=== PATIENT | female | born 1960 | race Caucasian/White ===

== ENCOUNTER 2020-04-25 10:26 | Outpatient (REF) | payer OTHER, SELFPAY ==
[2020-04-25 11:41] LABS: Hematocrit 36.1 % (37-47); Hemoglobin 11.9 g/dl (12.0-16.0); Mean Corpuscular Hemoglobin 30.4 pg (27.0-33.0); Mean Corpuscular Volume 92.1 fL (80-98); Mean Platelet Volume 11.7 fL (9.4-12.3); Platelet Count 220 X10*3/uL (160-400); Red Blood Count 3.92 X10*6/uL (4.20-5.50); White Blood Count 4.2 X10*3/uL (4.8-10.8)
[2020-04-25 12:02] LABS: Alanine Aminotransferase 15 U/L (0-31); Albumin Level 4.1 g/dL (3.5-5.0); Alkaline Phosphatase 61 U/L (39-117); Anion Gap 10 (12-20); Aspartate Amino Transferase 17 U/L (5-31); Bilirubin Total 0.4 mg/dL (0.0-1.0); Blood Urea Nitrogen 10 mg/dL (9-16); Calcium 8.7 mg/dL (8.4-10.2); Carbon Dioxide 30 mmol/L (22-29); Chloride 99 mmol/L (96-108); Cholesterol 201 mg/dL; Estimated Glomerular Filt Rate > 60; Glucose Fasting 90 mg/dL (60-99); HDL Cholesterol 68 mg/dL; LDL Cholesterol Calculated 124 mg/dl; Potassium 4.3 mmol/l (3.3-5.1); Sodium 135 mmol/L (135-145); Total Protein 6.5 g/dL (6.5-8.0); Triglycerides 46 mg/dL
== END 2020-04-25 10:27 | disposition home or self-care (01) ==
LOC: HO.MANLDS 10:26
PROVIDERS: PCP Internal Medicine; Visit Provider Physician Assistant
DX: Z13.6 Encounter for screening for cardiovascular disorders (principal)
CPT/HCPCS: 36415; 80053; 80061; 85027

== ENCOUNTER 2021-08-09 10:36 | Outpatient (REF) | payer OTHER, SELFPAY ==
[2021-08-09 12:46] LABS: MANUAL DIFF FLAG NO
[2021-08-09 12:52] LABS: Basophils Percent Auto 0.2 % (0-2); Eosinophils Absolute Auto 0.1 X10*3/uL (0.0-0.4); Eosinophils Percent Auto 1.6 % (0-4); Hematocrit 37.6 % (37.0-47.0); Hemoglobin 12.5 g/dl (12.0-16.0); Imm Gran Abs Auto 0.01 X10*3/uL (0.00-0.03); Imm Gran Pct Auto 0.2 % (0.0-0.4); Lymphocytes Absolute Auto 2.1 X10*3/uL (1.2-4.9); Lymphocytes Percent Auto 47.6 % (20-40); Mean Corpuscular HGB Conc 33.2 g/dl (31.0-35.0); Mean Corpuscular Hemoglobin 30.7 pg (27.0-33.0); Mean Corpuscular Volume 92.4 fL (80.0-98.0); Mean Platelet Volume 11.8 fL (9.4-12.3); Monocytes Absolute Auto 0.6 X10*3/uL (0.1-1.2); Monocytes Percent Auto 13.7 % (2-11); Neutrophils Absolute Auto 1.6 x10*3/uL (2.0-8.3); Neutrophils Percent Auto 36.7 % (45-73); Platelet Count 227 X10*3/uL (160-400); Red Blood Count 4.07 X10*6/uL (4.20-5.50); Red Cell Distribution Width 12.6 % (11.0-16.0); White Blood Count 4.5 X10*3/uL (4.8-10.8)
[2021-08-09 13:04] LABS: Alanine Aminotransferase 16 U/L (0-31); Albumin Level 4.3 g/dL (3.5-5.0); Alkaline Phosphatase 64 U/L (39-117); Anion Gap 10 (12-20); Aspartate Amino Transferase 21 U/L (5-31); Bilirubin Total 0.5 mg/dL (0.0-1.0); Blood Urea Nitrogen 10 mg/dL (9-16); Calcium 9.5 mg/dL (8.4-10.2); Carbon Dioxide 30 mmol/L (22-29); Chloride 102 mmol/L (96-108); Cholesterol 222 mg/dL; Estimated Glomerular Filt Rate > 60; Glucose Random 85 mg/dL (60-115); HDL Cholesterol 68 mg/dL; LDL Cholesterol Calculated 143 mg/dl; Potassium 4.1 mmol/L (3.3-5.1); Sodium 138 mmol/L (135-145); Total Protein 7.1 g/dL (6.5-8.0); Triglycerides 59 mg/dL
[2021-08-09 13:19] LABS: Estimated Average Glucose 97 mg/dL
[2021-08-09 13:25] LABS: Vitamin D 25-OH Total 38.5 ng/mL (>30)
== END 2021-08-09 10:37 | disposition home or self-care (01) ==
LOC: HO.MANLDS 10:36
PROVIDERS: PCP Physician Assistant; Visit Provider Physician Assistant
DX: Z00.00 Encounter for general adult medical examination without abnormal findings (principal); Z13.220 Encounter for screening for lipoid disorders; Z13.0 Encounter for screening for diseases of the blood and blood-forming organs and certain disorders involving the immune mechanism
CPT/HCPCS: 36415; 80053; 80061; 82306; 83036; 85025

== ENCOUNTER 2023-01-14 10:46 | Outpatient (REF) | payer MEDICARE, OTHER, SELFPAY ==
[2023-01-14 13:30] LABS: MANUAL DIFF FLAG NO
[2023-01-14 13:46] LABS: Basophils Percent Auto 0.2 % (0-2); Eosinophils Absolute Auto 0.1 X10*3/uL (0.0-0.4); Eosinophils Percent Auto 2.1 % (0-4); Hematocrit 37.6 % (37.0-47.0); Hemoglobin 12.5 g/dl (12.0-16.0); Imm Gran Abs Auto 0.01 X10*3/uL (0.00-0.03); Imm Gran Pct Auto 0.2 % (0.0-0.4); Lymphocytes Absolute Auto 1.8 X10*3/uL (1.2-4.9); Lymphocytes Percent Auto 41.9 % (20-40); Mean Corpuscular HGB Conc 33.2 g/dl (31.0-35.0); Mean Corpuscular Volume 93.3 fL (80.0-98.0); Mean Platelet Volume 11.5 fL (9.4-12.3); Monocytes Absolute Auto 0.7 X10*3/uL (0.1-1.2); Monocytes Percent Auto 14.8 % (2-11); Neutrophils Absolute Auto 1.8 x10*3/uL (2.0-8.3); Neutrophils Percent Auto 40.8 % (45-73); Platelet Count 249 X10*3/uL (160-400); Red Blood Count 4.03 X10*6/uL (4.20-5.50); Red Cell Distribution Width 12.2 % (11.0-16.0); White Blood Count 4.4 X10*3/uL (4.8-10.8)
[2023-01-14 14:02] LABS: Alanine Aminotransferase 15 U/L (0-31); Albumin Level 4.2 g/dL (3.5-5.0); Alkaline Phosphatase 62 U/L (39-117); Anion Gap 13 (12-20); Aspartate Amino Transferase 21 U/L (5-31); Bilirubin Total 0.4 mg/dL (0.0-1.0); Blood Urea Nitrogen 14 mg/dL (9-16); Calcium 9.3 mg/dL (8.4-10.2); Carbon Dioxide 26 mmol/L (22-29); Chloride 102 mmol/L (96-108); Cholesterol 239 mg/dL (<200); Estimated Glomerular Filt Rate > 60; Glucose Random 89 mg/dL (60-115); HDL Cholesterol 71 mg/dL (>40); Iron 76 mcg/dL (30-160); LDL Cholesterol Calculated 156 mg/dL (<100); Percent Iron Saturation 32 % (15-50); Potassium 4.1 mmol/L (3.3-5.1); Sodium 137 mmol/L (135-145); Total Iron Binding Capacity 237 mcg/dL (228-428); Total Protein 6.9 g/dL (6.5-8.0); Triglycerides 62 mg/dL (<150); Unsaturated Iron Binding 161 ug/dL
[2023-01-14 14:23] LABS: Ferritin 89 ng/mL (10-250); TSH reflex Free T4 0.94 uIU/mL (0.32-4.0); Vitamin D 25-OH Total 107.4 ng/mL (>30)
[2023-01-14 14:27] LABS: Folate 13.3 ng/mL (> or = 4.0); Vitamin B12 552 pg/mL (200-900)
== END 2023-01-14 10:47 | disposition home or self-care (01) ==
LOC: HO.MANLDS 10:46
PROVIDERS: Visit Provider Physician Assistant
DX: Z00.00 Encounter for general adult medical examination without abnormal findings (principal); R53.83 Other fatigue
CPT/HCPCS: 36415; 80053; 80061; 82306; 82607; 82728; 82746; 83540; 84443; 85025

== ENCOUNTER 2025-01-26 10:46 | Outpatient (REF) | payer MEDICARE, OTHER, SELFPAY ==
--- OUTSIDE RECORDS SUMMARY | 2025-01-26 12:50 | XMS_ITS | Encounter Summary ---
Author Organization [facility] Address [address] [place] [address] [address] [place] [address] Phone Care Team Providers Care Geothermal Heat Pump Machinist Name Role Phone Julian Taylor Primary Care Provider [phone] Brandon Julian Nair DO Unavailable Emelia Amaro CNM Unavailable [phone] Ginette Stokes ASSISTANT READING TEACHER Unavailable [phone] Linda Olivas MD Unavailable Marcelle Garza MD Unavailable Odalys Sinha MD Unavailable [phone] Amanda Matute ASSISTANT READING TEACHER Unavailable Ritu Hilario PA-C Unavailable Encounter Details Date Type Department Care Team (Late st Contact Info) Description 01/20/2021 Procedure Pass [facility], [address] [address] Social History Tobacco Use Types Packs/Day Years Used Date Smoking Tobacco: Never Assessed Comments No Sex and Gender Information Value Date Recorded Sex Assigned at Not on file Legal Sex Female 9:50 PM EDT Gender Identity Not on file Sexual Orientation Not on file documented as of this encounter Plan of Treatment Not on file documented as of this encounter Visit Diagnoses Not on filedocumented in this encounter Additional Health Concerns Infection Onset Date Last Indicated Resolved Time COVID-19 09/17/2021 09/17/2021 10/08/2021 1:21 AM EDT documented as of this encounter Care Teams Geothermal Heat Pump Machinist Relationship Specialty Start Date End Date Brandon Julian NairDO PCP - General 01/29/17 Julian Taylor DO Historical LMR Provider 02/03/17 Emelia Amaro CNM [address] [place] [address] Historical LMR Provider 02/03/17 2 Ginette Stokes NP [address] [place] [address] Historical LMR Provider 02/03/17 04/22/21 Linda Olivas MD [address] [address] Historical LMR Provider 02/03/17 Marcelle Garza MD [address] [place] [address] [facility], [place] [address] Historical LMR Provider 02/03/17 Odalys Sinha MD [address] [address] Historical LMR Provider 02/03/17 2 Amanda Matute, RUSSELL [address] [place] [address] Historical LMR Provider 02/03/17 2 Ritu Hilario PA-C [address] [place] [address] [email or web address] Physician Boat Builder And Repairer 01/18/23 documented as of this encounter Additional Source Comments The information contained in this document represents components of the legal health record. It is not the complete legal health record.[facility]
--- OUTSIDE RECORDS SUMMARY | 2025-01-26 12:50 | XMS_ITS | Encounter Summary ---
Author Organization [facility] Address [address] [place], [place] [address] [place] [address] Phone Care Team Providers Care Loan Examiner Name Role Phone Julian Taylor Primary Care Provider [phone] Lissakhadar Julian Nair DO Unavailable Emelia Amaro CNM Unavailable [phone] Ginette Stokes HUMAN RESOURCES COORDINATOR Unavailable [phone] Linda Olivas MD Unavailable Marcelle Garza MD Unavailable Odalys Sinha MD Unavailable [phone] Amanda Matute HUMAN RESOURCES COORDINATOR Unavailable Ritu Hilario PA-C Unavailable Encounter Details Date Type Department Care Team (Latest Contact Info) Description 02/09/2019 Transcribe Orders Virtual Department [address] [place] [address] Sari Ellington PA-C [address] [place] [address] Other specified disorders of bone, unspecified site (Primary Dx) Social History Tobacco Use Types Packs/Day Years Used Date Smoking Tobacco: Never Assessed Comments No Sex and Gender Information Value Date Recorded Sex Assigned at Not on file Legal Sex Female 9:50 PM EDT Gender Identity Not on file Sexual Orientation Not on file documented as of this encounter Plan of Treatment Not on file documented as of this encounter Results * XR Sacrum and Coccyx (02/16/2019 9:23 AM EST) Anatomical Region Laterality Modality L-spine Radiographic Madelyn ging 02/16/2019 9:54 AM EST Impressions 02/16/2019 9:55 AM EST No source of the pain is seen. POS - [id number] Narrative 02/16/2019 9:55 AM EST AP and lateral views sacrum and coccyx. No prior. Multiple soft tissue calcifications noted regionally. No sclerosis or erosion seen SI joints maintained joint spaces. Degenerative disc disease noted L5-S1, worse on the right. No sacral fracture or bony destructive lesion is identified. Procedure Note Lauren Barnes MD - 02/16/2019 AP and lateral views sacrum and coccyx. No prior. Multiple soft tissuecalcifications noted regionally. No sclerosis or erosion seen SI jointsmaintained joint spaces. Degenerative disc disease noted L5-S1, worse onthe right. No sacral fracture or bony destructive lesion is identified. IMPRESSION: No source of the pain is seen. POS - [id number] July Chandana JOHNSON IMG XR SPINE Final Result documented in this encounter Visit Diagnoses Diagnosis Other specified disorders of bone, unspecified site- Primary Other specified disorders of bone, unspecified site documented in this encounter Additional Health Concerns Infection Onset Date Last Indicated Resolved Time COVID-19 09/17/2021 09/17/2021 10/08/2021 1:21 AM EDT documented as of this encounter Care Teams Loan Examiner Relationship Specialty Start Date End Date Julian Taylor DO PCP - General 01/29/17 Julian Taylor DO Historical LMR Provider 02/03/17 Emelia Amaro CNM [address] [place] [address] Historical LMR Provider 02/03/17 2 Ginette Stokes NP [address] [place] [address] [email or web address] Historical LMR Provider 02/03/17 04/22/21 Linda Olivas MD [address] [place] [address] [email or web address] Historical LMR Provider 02/03/17 Marcelle Garza MD [address] [place] [address] [facility], [place] [address] [email or web address] Historical LMR Provider 02/03/17 Odalys Sinha MD [address] [address] Historical LMR Provider 02/03/17 2 Amanda Matute NP [address] [place] [address] Historical LMR Provider 02/03/17 2 Ritu Hilario PA-C [address] [place] [address] [email or web address] Physician Time Study Statistician 01/18/23 documented as of this encounter Additional Source Comments The information contained in this document represents components of the legal health record. It is not the complete legal health record.[facility]
--- OUTSIDE RECORDS SUMMARY | 2025-01-26 12:51 | XMS_ITS | Encounter Summary ---
Author Organization [facility] Address [address] [place], [place] [address] [place] [address] Phone Care Team Providers Care Newspaper Vendor Name Role Phone LissaJulian rubalcava Joanie CHAVEZ Primary Care Provider [phone] Brandon Julian Nair DO Unavailable Emelia Amaro CNM Unavailable [phone] Ginette Stokes DOCTOR OF NURSE ANESTHESIA Unavailable [phone] Linda Olivas MD Unavailable Marcelle Garza MD Unavailable Odalys Sinha MD Unavailable [phone] Amanda Matute NP Unavailable Ritu Hilario PA-C Unavailable [phone] Reason for Referral * MRI/CAT Scan - Closed Specialty Diagnoses / Procedures Referred By Carolyn washington Referred To Contact Radiology Diagnoses Chronic cervical pain Procedures MRI Cervical Spine Sari Ellington PA-C Phone: tel: fax: Referral ID Status Reason Start Date Expiration Date Visits Re quested Visits Authorized [id number] Closed 04/19/2017 04/19/2018 1 1 Encounter Details Date Type Department Care Team (Late st Contact Info) Description 04/19/2017 Ancillary Orders Virtual Department [address] [place] [address] Sari Ellington PA-C [address] [place] [place] [address] Chronic cervical pain Social History Tobacco Use Types Packs/Day Years Used Date Smoking Tobacco: Never Assessed Comments Unknown Sex and Gender Information Value Date Recorded Sex Assigned at Not on file Legal Sex Female 9:50 PM EDT Gender Identity Not on file Sexual Orientation Not on file documented as of this encounter Plan of Treatment Not on file documented as of this encounter Results * MRI CERVICAL SPINE (NEURO) FOCUS WITHOUT CONTRAST (05/13/2017 11:55 AM EST) Anatomical Region Laterality Modality C-spine Magnetic Resonan ce 05/13/2017 12:4 8 PM EST Impressions 05/13/2017 1:01 PM EST Degenerative disc disease C5-6 and C6-7 and very minor disc protrusion centrally at C7-T1. POS - [id number] Edited by: Eliza Mora on 05/13/2017 12:56 PM Narrative 05/13/2017 1:01 PM EST HISTORY: Pain and diminished range of motion. Right-sided numbness. COMPARISON: None. TECHNIQUE: Exam performed on a 1.5 Soo high-field MRI scanner. Sagittal T1, T2 and STIR, axial T2* gradient echo and 3D bright fluid sequences were obtained. FINDINGS: No finding concern detected at the craniocervical junction. There is some mild degenerative change across the C1-2 articulations and some slight rotation. At C2-3 there is mild disc desiccation. No focal disc abnormality. No canal or foraminal stenosis. At C3-4 no disc abnormality of concern is identified. No canal or foraminal stenosis. At C4-5 no focal disc abnormality is identified. No canal or foraminal stenosis. At C5-6 there is no focal disc abnormality but there is some mild broad-based disc bulging. There is some slight uncovertebral spurring bilaterally but this does not appear to lead to significant canal or foraminal stenosis. At C6-7 there is minor disc height loss. No canal or foraminal stenosis or focal disc abnormality. Minor uncovertebral degenerative change is noted. At C7-T1 there is very small central disc protrusion without significant regional mass effect. No foraminal narrowing. At T1-2 no finding of concern is identified. On sagittal views at T2-3 no finding of concern is identified. No prominent hypertrophic facet changes at any level. No worrisome marrow signal change. No intrinsic cord signal abnormality. No syrinx identified. Study not tailored for evaluation of regional soft tissues but no gross adenopathy or other soft tissue finding of concern is identified in the [id number]. Procedure Note Lauren Barnes MD - 05/13/2017 HISTORY: Pain and diminished range of motion. Right-sided numbness. COMPARISON: None. TECHNIQUE: Exam performed on a 1.5 Soo high-field MRI scanner. SagittalT1, T2 and STIR, axial T2* gradient echo and 3D bright fluid sequenceswere obtained. FINDINGS: No finding concern detected at the craniocervical junction. There is somemild degenerative change across the C1-2 articulations and some slightrotation. At C2-3 there is mild disc desiccation. No focal disc abnormality. Nocanal or foraminal stenosis. At C3-4 no disc abnormality of concern is identified. No canal orforaminal stenosis. At C4-5 no focal disc abnormality is identified. No canal or foraminalstenosis. At C5-6 there is no focal disc abnormality but there is some mildbroad-based disc bulging. There is some slight uncovertebral spurringbilaterally but this does not appear to lead to significant canal orforaminal stenosis. At C6-7 there is minor disc height loss. No canal or foraminal stenosisor focal disc abnormality. Minor uncovertebral degenerative change isnoted. At C7-T1 there is very small central disc protrusion without significantregional mass effect. No foraminal narrowing. At T1-2 no finding of concern is identified. On sagittal views at T2-3 no finding of concern is identified. Noprominent hypertrophic facet changes at any level. No worrisome marrowsignal change. No intrinsic cord signal abnormality. No syrinxidentified. Study not tailored for evaluation of regional soft tissues but no grossadenopathy or other soft tissue finding of concern is identified in [id number]. IMPRESSION: Degenerative disc disease C5-6 and C6-7 and very minor disc protrusioncentrally at C7-T1. POS - [id number] Edited by: Eliza Mora on 05/13/2017 12:56 PM July Chandana JOHNSON IMG MR XSPECIALTY Final Resu lt documented in this encounter Visit Diagnoses Diagnosis Chronic cervical pain Cervicalgia documented in this encounter Additional Health Concerns Infection Onset Date Last Indicated Resolved Time COVID-19 09/17/2021 09/17/2021 10/08/2021 1:21 AM EDT documented as of this encounter Care Teams Newspaper Vendor Relationship Specialty Start Date End Date Julian Taylor DO PCP - General 01/29/17 Julian Taylor DO Historical LMR Provider 02/03/17 Emelia Amaro CNM [address] [place] [address] Historical LMR Provider 02/03/17 2 Ginette Stokes, DOCTOR OF NURSE ANESTHESIA [address] [place] [address] Historical LMR Provider 02/03/17 04/22/21 Linda Olivas MD [address] [place] [address], [address] [place] [address] Historical LMR Provider 02/03/17 Marcelle Garza MD [address] [place] [address] [facility], [place] [address] Historical LMR Provider 02/03/17 Odalys Sinha MD [address], [place] [address] Historical LMR Provider 02/03/17 2 Amanda Matute NP [address] [place] [address] Historical LMR Provider 02/03/17 2 Ritu Hilario PA-C [address] [place] [address] [email or web address] Physician Spinner Continuous 01/18/23 documented as of this encounter Additional Source Comments The information contained in this document represents components of the legal health record. It is not the complete legal health record.[facility]
--- OUTSIDE RECORDS SUMMARY | 2025-01-26 12:51 | XMS_ITS | Encounter Summary ---
Author Organization [facility] Address [address] [place] [address] Phone Care Team Providers Care Ball Rolling Machine Operator Name Role Phone Julian Taylor DO Primary Care Provider [phone] Julian Taylor DO Unavailable Ritu Hilario PA-C Unavailable [phone] Encounter Details Date Type Department Care Team (Late st Contact Info) Description 09/27/2021 Procedure Pass [facility], [facility] Scan - [facility] [address] [place] [address] Social History Tobacco Use Types Packs/Day Years Used Date Smoking Tobacco: Former Cigarettes Q uit: 1986 Smokeless Tobacco: Never Alcohol Use Standard Drinks/Week Comments Yes 6 (1 standard drink = 0.6 oz pur e alcohol) Comments No Sex and Gender Information Value [...] documented as of this encounter Care Teams Ball Rolling Machine Operator Relationship Specialty Start Date End Date Julian Taylor DO PCP - General 01/29/17 Julian Taylor DO [email or web address] Historical LMR Provider 02/03/17 Ritu Hilario PA-C [address] [place] [address] [email or web address] Physician Cruise Counselor 01/18/23 documented as of this encounter Additional Source Comments The information contained in this document represents components of the legal health record. It is not the complete legal health record.[facility]
--- OUTSIDE RECORDS SUMMARY | 2025-01-26 12:51 | XMS_ITS | Encounter Summary ---
Author Organization [facility] Address [address] [place] [address] [address] [place] [address] Phone Care Team Providers Care Freight Engineer Name Role Phone LissaJulian rubalcava Joanie CHAVEZ Primary Care Provider [phone] Brandon Julian Nair DO Unavailable Emelia Amaro CNM Unavailable Ginette Stokes COTTON GROWER Unavailable [phone] Linda Olivas MD Unavailable Marcelle Garza MD Unavailable Odalys Sinha MD Unavailable [phone] Amanda Matute NP Unavailable Ritu Hilario PA-C Unavailable [phone] Reason for Referral * MRI/CAT Scan - Closed Specialty Diagnoses / Procedures Referred By Contac t Referred To Contact Radiology Diagnoses Injury of head, initial encounter Procedures CT Head Sari Ellington PA-C Phone: tel: fax: Referral ID Status Reason Start Date Expiration Date Visits Re quested Visits Authorized [id number] Closed 02/09/2019 02/09/2020 1 1 * Outpatient Procedure - Closed Specialty Diagnoses / Procedures Referred By Contac t Referred To Contact Diagnoses Syncope and collapse Procedures Adult Echo TTE Sari Ellington PA-C Phone: tel: fax: Referral ID Status Reason Start Date Expiration Date Visits Re quested Visits Authorized [id number] Closed 02/09/2019 02/09/2020 1 1 * MRI/CAT Scan - Closed Specialty Diagnoses / Procedures Referred By Contemily t Referred To Contact Radiology Diagnoses Atypical chest pain Procedures NC Myocardial Perfusion Pharmacologic Stress Multiple Sari Ellington PA-C Phone: tel: fax: Referral ID Status Reason Start Date Expiration Date Visits Re quested Visits Authorized [id number] Closed 02/09/2019 02/09/2020 1 1 Encounter Details Date Type Department Care Team (Latest Contact Info) Description 02/09/2019 Transcribe Orders Virtual Department [address] [place] [address] Sari Ellington PA-C [address] [place] [address] Injury of head, initial encounter (Primary Dx); Atypical chest pain; Syncope and collapse Social History Tobacco Use Types Packs/Day Years Used Date Smoking Tobacco: Never Assessed Comments No Sex and Gender Information Value Date Recorded Sex Assigned at Not on file Legal Sex Female 9:50 PM EDT Gender Identity Not on file Sexual Orientation Not on file documented as of this encounter Plan of Treatment Not on file documented as of this encounter Results * TTE COMPREHENSIVE (03/02/2019 9:21 AM EST) Body Surface Area 1.6 m2 Height 163 cm Weight 57 kg Systolic BP 118 mmHg Diastolic BP 64 mmHg Left Atrium Dimension Anterior-Posterior 26 15 - 40 mm Aortic Valve Peak Velocity 95.0 cm/s Aortic Valve Peak Gradient 4 mmHg Aortic Sinus Diameter 26 mm Ascending Aorta Diameter 31 mm Inferior Vena Cava Diameter 17 0.0 - 21 mm Interventricular Septum Thickness 9 mm Left Ventricle Internal Diameter End Diastole 41 37 - 52 mm Left Ventricle Internal Diameter End Systole 25 22 - 35 mm Left Ventricular Outflow Tract Diameter 19.0 mm LVOT VTI REST 207 mm Left Ventricular Outflow Tract Velocity 0.8 m/s Left Ventricular Outflow Tract Gradient at Rest 3 mmHg Left Ventricular Posterior Wall Thickness 8 mm Ejection Fraction 71 50 - 75 Percent Mitral Valve Deceleration Time 165 ms Mitral Valve A Wave Speed 51.4 cm/s Mitral Valve E Wave Speed 47.1 cm/s Right Ventricle Basal Diameter 23.3 25 - 41 mm Tricuspid Valve Peak Velocity 2.1 m/s Raw LV EF% 63 % Right Ventricle Peak Systolic Pressure 21 mmHg Right Atrium Pressure Estimated 3 mmHg Right Ventricle to Right Atrium Pressure Gradient 18 mmHg Aortic Valve Sinus Index 1 16 19 - 27 mm Ascending Aorta Diameter 19 mm Aortic Sinus Index 16 mm Ascending Aorta Index 19 mm Anatomical Region Laterality Modality Heart Ultrasound Narrative 03/02/2019 11:16 AM EST The left ventricular cavity size and wall thickness are normal. Left ventricular systolic function is normal The estimated ejection fraction is 71% Left ventricular diastolic function appears within normal limits for age There is evidence of mild aortic regurgitation Normal pulmonary pressure No prior studies for comparison Left Ventricle The left ventricular cavity size and wall thickness are normal. Left ventricular systolic function is normal. There are no segmental left ventricular wall motion abnormalities noted. The estimated ejection fraction is 71% (Normal 50-75%). The left ventricular ejection fraction was measured by the single dimension method. Left ventricular diastolic function appears within normal limits for age. There is no evidence of left ventricular thrombus. Right Ventricle The right ventricular size is normal. No evidence of right ventricular hypertrophy. The right ventricular systolic function is normal. Left Atrium The left atrium is normal in size. The left atrial anterior-posterior dimension measures 26 mm (normal 15-40 mm). The pulmonary venous flow profiles are normal. Pulmonary vein connections were not well seen. Right Atrium The right atrium is normal in size. The IVC is normal in size (2.1cm or less). The IVC measures 17 mm (normal <=21 mm). The IVC demonstrates normal collapse with inspiration which is consistent with normal RA pressure. Mitral Valve The mitral valve appears normal. The E/A ratio is 0.9. The Med E' Paul is 8.2 cm/s and the Lat E' Paul is 8.7 cm/s. The E/E' AVG is 5.6. There is no evidence of mitral stenosis. There is trace mitral regurgitation detected by spectral and color Doppler. Tricuspid Valve The tricuspid valve appears normal. There is no evidence of tricuspid stenosis. There is evidence of mild tricuspid regurgitation by color and spectral Doppler. Normal pulmonary pressure. The RV systolic pressure was estimated from the peak TV regurgitant velocity. The estimated RV systolic pressure is 21 mmHg assuming a right atrial pressure of 3 mmHg. Aortic Valve The aortic valve was not well visualized. The aortic valve appears normal. The aortic valve is tricuspid. There is mild thickening of the non-coronary aortic leaflet. There is no evidence of valvular aortic stenosis. The peak aortic valve gradient is 4 mmHg. There is evidence of mild aortic regurgitation by color and spectral Doppler. The jet is directed centrally. The visualized portions of the thoracic aorta appear normal. Descending thoracic aorta is not well visualized. Pulmonic Valve Pulmonary valve was not well visualized. The pulmonary valve appears normal. There is no evidence of pulmonic stenosis. There is evidence of trace to mild pulmonary regurgitation by color and spectral Doppler. Pericardium There is no evidence of pericardial effusion. There no evidence of a pleural effusion. Interatrial Septum The interatrial septum appears normal. Interventricular Septum Interventricular septal motion appears normal. General Findings The image quality was fair (3). Technique(s) used in the evaluation: Color flow Doppler and Spectral Doppler. The predominant rhythm during the study was sinus. Comparison Findings No prior studies for comparison. July Chandana JOHNSON CV ECHO ORDERABLES Final Res ult * US Carotid Duplex (Bilateral) (02/18/2019 12:12 PM EST) Anatomical Region Laterality Modality Heart, Thoracic Vasculature, Neck Ultrasound 02/18/2019 12:1 8 PM EST Impressions 02/18/2019 12:20 PM EST No visible plaque on right or left. No evidence of hemodynamically significant stenosis. POS - [id number] Narrative 02/18/2019 12:20 PM EST HISTORY: Syncope. COMPARISON: Carotid ultrasound 01/10/2015 CAROTID ULTRASOUND FINDINGS: RIGHT: Carotid artery morphology: No visible plaque. Peak systolic and diastolic velocity internal carotid artery: Systolic: 104 cm/sec, Diastolic: 47 cm/sec. Elevation of the peak diastolic velocity is likely clinically insignificant. Vertebral artery: Normal antegrade flow. LEFT: Carotid artery morphology: No visible plaque. Peak systolic and diastolic velocity internal carotid artery: Systolic: 105 cm/sec, Diastolic: 43 cm/sec. Elevation of the peak diastolic velocity is likely clinically insignificant. Vertebral artery: Normal antegrade flow. Any stenosis measurement is relative to the distal ICA diameters. Procedure Note Franko Garza MD - 02/18/2019 HISTORY: Syncope. COMPARISON: Carotid ultrasound 01/10/2015 CAROTID ULTRASOUND FINDINGS: RIGHT: Carotid artery morphology: No visible plaque. Peak systolic and diastolic velocity internal carotid artery: Systolic:104 cm/sec, Diastolic: 47 cm/sec. Elevation of the peak diastolic velocityis likely clinically insignificant. Vertebral artery: Normal antegrade flow. LEFT: Carotid artery morphology: No visible plaque. Peak systolic and diastolic velocity internal carotid artery: Systolic:105 cm/sec, Diastolic: 43 cm/sec. Elevation of the peak diastolic velocityis likely clinically insignificant. Vertebral artery: Normal antegrade flow. Any stenosis measurement is relative to the distal ICA diameters. IMPRESSION: No visible plaque on right or left. No evidence of hemodynamicallysignificant stenosis. POS - [id number] Sari Ellington PA-C CV US NEUROVASCULAR Final Re sult * NC Myocardial Perfusion Pharmacologic Stress Multiple (02/16/2019 12:10 PM EST) Anatomical Region Laterality Modality Heart, Vascular Nuclear Medicine 02/16/2019 12:1 4 PM EST Impressions 02/16/2019 12:17 PM EST Normal cardiac scintigraphy. No findings of prior infarction or current ischemia are seen. Estimated left ventricular ejection fraction of greater than 70%. S/S: Symptoms: Chest Pain - DDx CANNOT DO TREADMILL OR BIKE DUE TO CHRONIC NECK ISSUES THAT ARE EXACERBATED BY EXERCISE. Atypical chest pain POS - [id number] Narrative 02/16/2019 12:17 PM EST The patient is injected intravenously with 9.8 mCi of Tc99m labeled Cardiolite at rest and 29.1 mCi with the same agent at stress. SPECT images are obtained of both injections and are gated at stress. The patient is stressed utilizing Lexiscan. Evaluation of the left ventricular perfusion discloses a normal sized ventricular cavity. No fixed or reversible perfusion defects are seen. There is normal wall motion and wall thickening evident.. The estimated left ventricular ejection fraction is greater than 70%.. TID ratio 1.18. Procedure Note Naveen Rizo MD - 02/16/2019 The patient is injected intravenously with 9.8 mCi of Tc99m labeledCardiolite at rest and 29.1 mCi with the same agent at stress. SPECTimages are obtained of both injections and are gated at stress. Thepatient is stressed utilizing Lexiscan. Evaluation of the left ventricular perfusion discloses a normal sizedventricular cavity. No fixed or reversible perfusion defects are seen.There is normal wall motion and wall thickening evident.. The estimatedleft ventricular ejection fraction is greater than 70%.. TID ratio1.18. IMPRESSION: Normal cardiac scintigraphy. No findings of prior infarction or currentischemia are seen. Estimated left ventricular ejection fraction of greaterthan 70%. S/S: Symptoms: Chest Pain - DDx CANNOT DO TREADMILL OR BIKE DUE TO CHRONIC NECK ISSUES THAT AREEXACERBATED BY EXERCISE. Atypical chest pain POS - [id number] July Chandana JOHNSON CV NM CARDIAC Final Result * CT HEAD WITHOUT CONTRAST (02/16/2019 8:48 AM EST) Anatomical Region Laterality Modality Head Computed Tomogra phy 02/16/2019 8:40 AM EST Impressions 02/16/2019 8:47 AM EST No acute intracranial findings. TOTAL CTDIvol: 52.7 mGy POS - [id number] Narrative 02/16/2019 8:47 AM EST COMPARISON: CT 10/01/2012 and MRI 2016. TECHNIQUE: Nonenhanced head CT from skull base to vertex with multi-planar reformats. Manual dose reduction technique tailored for patient and site of imaging. CT HEAD FINDINGS: Brain: There is no acute intracranial hemorrhage, infarct, or intracranial mass. No mass effect, midline shift or extra-axial fluid collections. Calixto-white matter differentiation is preserved. Stable mild generalized cortical atrophy. Basal cisterns are patent. Pituitary gland is not enlarged. Ventricles: No hydrocephalus. Vasculature: Stable mild bilateral cavernous carotid artery calcified plaque. Orbits: Normal. Mastoids/Middle Ear/Ext Canals/Paranasal Sinuses: Normal. Scalp/Soft Tissues: No acute soft tissue findings. Bones: No acute bony abnormality. Procedure Note Kimberly Jo MD - 02/16/2019 COMPARISON: CT 10/01/2012 and MRI 2016. TECHNIQUE: Nonenhanced head CT from skull base to vertex with multi- planarreformats. Manual dose reduction technique tailored for patient and siteof imaging. CT HEAD FINDINGS: Brain: There is no acute intracranial hemorrhage, infarct, orintracranial mass. No mass effect, midline shift or extra-axial fluidcollections. Calixto-white matter differentiation is preserved. Stable mildgeneralized cortical atrophy. Basal cisterns are patent. Pituitary glandis not enlarged. Ventricles: No hydrocephalus. Vasculature: Stable mild bilateral cavernous carotid artery calcifiedplaque. Orbits: Normal. Mastoids/Middle Ear/Ext Canals/Paranasal Sinuses: Normal. Scalp/Soft Tissues: No acute soft tissue findings. Bones: No acute bony abnormality. IMPRESSION: No acute intracranial findings. TOTAL CTDIvol: 52.7 mGy POS - [id number] July Chandana JOHNSON IMG CT HEAD/NECK Final Resul t documented in this encounter Visit Diagnoses Diagnosis Injury of head, initial encounter- Primary Atypical chest pain Other chest pain Syncope and collapse Atypical chest pain Other chest pain Injury of head, initial encounter Syncope and collapse Syncope and collapse documented in this encounter Additional Health Concerns Infection Onset Date Last Indicated Resolved Time COVID-19 09/17/2021 09/17/2021 10/08/2021 1:21 AM EDT documented as of this encounter Care Teams Freight Engineer Relationship Specialty Start Date End Date Julian Taylor DO [email or web address] PCP - General 01/29/17 Julian Taylor DO Historical LMR Provider 02/03/17 Emelia Amaro CNM [address] [place] [address] Historical LMR Provider 02/03/17 2 Ginette Stokes NP [address] [place] [address] [email or web address] Historical LMR Provider 02/03/17 04/22/21 Linda Olivas MD [address] [place] [address] [email or web address] Historical LMR Provider 02/03/17 Marcelle Garza MD [address] [place] [address] Orthopedics & Sports Medicine, [place] [address] [email or web address] Historical LMR Provider 02/03/17 Odalys Sinha MD [address] [place] [address] Historical LMR Provider 02/03/17 2 Amanda Matute NP [address] [place] [address] Historical LMR Provider 02/03/17 2 Ritu Hilario PA-C [address] [place] [email or web address] Physician Power Generating Plant Operator 01/18/23 documented as of this encounter Additional Source Comments The information contained in this document represents components of the legal health record. It is not the complete legal health record.[facility]
--- OUTSIDE RECORDS SUMMARY | 2025-01-26 12:51 | XMS_ITS | Encounter Summary ---
Author Organization [facility] Address [address] [place] [address] [address] [place] [address] Phone Care Team Providers Care Truck Supervisor Name Role Phone Julian Taylor DO Primary Care Provider Julian Taylor DO Unavailable Emelia Amaro CNM Unavailable Ginette Stokes COMBINATION MACHINE TOOL SETTER Unavailable [phone] Linda Olivas MD Unavailable Marcelle Garza MD Unavailable Odalys Sinha MD Unavailable [phone] Amanda Matute COMBINATION MACHINE TOOL SETTER Unavailable Ritu Hilario PA-C Unavailable Encounter Details Date Type Department Care Team (Late st Contact Info) Description 01/20/2021 Transcribe Orders Virtual Department [address] [place] [address] Julian Taylor DO [address] [facility] [place] [address] [place] [address] [email or web address] Breast screening (Primary Dx) Social History Tobacco Use Types [...] documented as of this encounter Results * BI MAMMOGRAM SCREENING WITH TOMOSYNTHESIS WITH CAD (BILATERAL) (02/17/2021 11:02 AM EDT) Anatomical Region Laterality Modality Breast Left, Breast Right, Breast Bilateral Bila teral Mammography 02/17/2021 11:0 5 AM EDT Impressions 02/17/2021 11:35 AM EDT No mammographic evidence of malignancy. Recommend routine annual surveillance. BI-RADS CATEGORY: 2 - Benign finding. DENSITY: There are scattered fibroglandular densities. Narrative 02/17/2021 11:35 AM EDT 60-year-old female with no current breast symptoms. Comparison made to previous on 03/25/2018 and as far back as 01/14/20. Interpretation made in conjunction with computer-aided detection and tomosynthesis. There are scattered areas of fibroglandular density. Chronic benign bilateral scattered calcifications. There are no suspicious masses, areas of architectural distortion, or suspicious clusters of microcalcifications. Procedure Note Junior Vaca MD - 02/17/2021 60-year-old female with no current breast symptoms. Comparison made toprevious on 03/25/2018 and as far back as 01/14/20. Interpretation made inconjunction with computer-aided detection and tomosynthesis. There are scattered areas of fibroglandular density. Chronic benignbilateral scattered calcifications. There are no suspicious masses, areas of architectural distortion, orsuspicious clusters of microcalcifications. IMPRESSION: No mammographic evidence of malignancy. Recommend routine annualsurveillance. BI-RADS CATEGORY: 2 - Benign finding. DENSITY: There are scattered fibroglandular densities. us Julian A Bigda DO IMG MG EXAMS Final Result documented in this encounter Visit Diagnoses Diagnosis Breast screening- Primary Breast screening, unspecified Breast screening Breast screening, unspecified documented in this encounter Additional Health Concerns Infection Onset Date Last Indicated Resolved Time COVID-19 09/17/2021 09/17/2021 10/08/2021 1:21 AM EDT documented as of this encounter Care Teams Truck Supervisor Relationship Specialty Start Date End Date Julian Taylor JoanieDO PCP - General 01/29/17 Julian Taylor DO Historical LMR Provider 02/03/17 Emelia Amaro CNM [address] [place] [address] Historical LMR Provider 02/03/17 2 Ginette Stokes NP [address] [place] [address] Historical LMR Provider 02/03/17 04/22/21 Linda Olivas MD 15 [facility], [address] [place] [address] Historical LMR Provider 02/03/17 Marcelle Garza MD [address] [place] [address] Orthopedics & Sports Medicine, [facility] [place] [address] Historical LMR Provider 02/03/17 Odalys Sinha MD [address], [place] [address] Historical LMR Provider 02/03/17 2 Amanda Matute NP [address] [place] [address] Historical LMR Provider 02/03/17 2 Ritu Hilario PA-C [address] [place] [address] [email or web address] Physician Electric Arc Furnace Operator 01/18/23 documented as of this encounter Additional Source Comments The information contained in this document represents components of the legal health record. It is not the complete legal health record.[facility]
--- OUTSIDE RECORDS SUMMARY | 2025-01-26 12:51 | XMS_ITS | Encounter Summary ---
Author Organization [facility] Address [address] [place] [address] [address] [place] [address] Phone Care Team Providers Care Monitor And Storage Bin Tender Name Role Phone Julian Taylor Primary Care Provider [phone] Brandon Julian Nair DO Unavailable Emelia Amaro CNM Unavailable [phone] Ginette Stokes QUAD STAYER Unavailable [phone] Linda Olivas MD Unavailable Marcelle Garza MD Unavailable Odalys Sinha MD Unavailable [phone] Amanda Matute QUAD STAYER Unavailable Ritu Hilario PA-C Unavailable Encounter Details Date Type Department Care Team (Late st Contact Info) Description 04/19/2017 Procedure Pass [address] [place] [address] Social History Tobacco Use Types Packs/Day Years [...] documented as of this encounter Care Teams Monitor And Storage Bin Tender Relationship Specialty Start Date End Date Lissakhadar Julian NairDO PCP - General 01/29/17 Julian Taylor DO Historical LMR Provider 02/03/17 Emelia Amaro CNM [address] [place] [address] Historical LMR Provider 02/03/17 2 Ginette Stokes NP [address] [place] [address] Historical LMR Provider 02/03/17 04/22/21 Linda Olivas MD [address] [place] [address], [address] [place] [address] Historical LMR Provider 02/03/17 Marcelle Garza MD [address] [place] [address] Orthopedics & Sports Medicine, [place] [address] Historical LMR Provider 02/03/17 Odalys Sinha MD [address] [id number] Historical LMR Provider 02/03/17 2 Amanda Matute, QUAD STAYER [address] [place] [address] Historical LMR Provider 02/03/17 2 Ritu Hilario PA-C [address] [place] [email or web address] Physician Community Affairs Manager 01/18/23 documented as of this encounter Additional Source Comments The information contained in this document represents components of the legal health record. It is not the complete legal health record.[facility]
--- OUTSIDE RECORDS SUMMARY | 2025-01-26 12:51 | XMS_ITS | Encounter Summary ---
Author Organization [facility] Address [address] [place] [address] [address] [place] [address] Phone Care Team Providers Care Hot Dip Tinning Supervisor Name Role Phone Julian Taylor Primary Care Provider [phone] Brandon Julian Nair DO Unavailable Emelia Amaro CNM Unavailable [phone] Ginette Stokes COPY EDITOR Unavailable [phone] Linda Olivas MD Unavailable Marcelle Garza MD Unavailable Odalys Sinha MD Unavailable [phone] Amanda Matute COPY EDITOR Unavailable Ritu Hilario PA-C Unavailable Encounter Details Date Type Department Care Team (Late st Contact Info) Description 02/12/2019 Procedure Pass [facility] Endoscopy Admitting Dept Virtual Department [address] [place] [address] Social History Tobacco Use Types Packs/Day Years [...] documented as of this encounter Care Teams Hot Dip Tinning Supervisor Relationship Specialty Start Date End Date Lissakhadar Julian NairDO PCP - General 01/29/17 Julian Taylor DO Historical LMR Provider 02/03/17 Emelia Amaro CNM [address] [place] [address] Historical LMR Provider 02/03/17 2 Ginette Stokes NP [address] [place] [address] Historical LMR Provider 02/03/17 04/22/21 Linda Olivas MD [address] [place] [address], [address] [place] [address] Historical LMR Provider 02/03/17 Marcelle Garza MD [address] [place] [address] Orthopedics & Sports Medicine, [place] [address] Historical LMR Provider 02/03/17 Odalys Sinha MD [address], [place] [phone] Historical LMR Provider 02/03/17 2 Amanda Matute, COPY EDITOR [address] [place] [address] Historical LMR Provider 02/03/17 2 Ritu Hilario PA-C [address] [place] [email or web address] Physician Accounts Payable Clerk 01/18/23 documented as of this encounter Additional Source Comments The information contained in this document represents components of the legal health record. It is not the complete legal health record.[facility]
--- OUTSIDE RECORDS SUMMARY | 2025-01-26 12:51 | XMS_ITS | Encounter Summary ---
Author Organization [facility] Address [address] [place] [address] [address] [place] [address] Phone Care Team Providers Care Box Stamper Name Role Phone Julian Taylor DO Primary Care Provider [phone] Julian Taylor DO Unavailable Ritu Hilario PA-C Unavailable [phone] Encounter Details Date Type Department Care Team ([facility] st Contact Info) Description 02/28/2023 Telephone Easy [facility] [address] [place] [address] Julian Taylor DO [address] [place] [place] [address] [place] [address] [email or web address] Social History Tobacco Use Types Packs/Day Years Used Date Smoking Tobacco: Former Cigarettes Q uit: 1986 Smokeless Tobacco: Never Alcohol Use Standard Drinks/Week Comments Yes 6 (1 standard drink = 0.6 oz pur e alcohol) Education Answer Date Recorded Are you interested in more education? Not on augustus e 08/10/2022 Are you concerned about learning? Not on file 08/10/2022 No 08/10/2022 No 08/10/2022 Digital Access Answer Date Recorded No 09/08/2022 No 09/08/2022 Reliable internet access at home? Not on file 09/08/2022 Device with a working camera? Not on file Comments No Sex and Gender Information Value Date Recorded Sex Assigned at Not on file Legal Sex Female 9:50 PM EDT Gender Identity Not on file Sexual Orientation Not on file documented as of this encounter Plan of Treatment Not on file documented as of this encounter Visit Diagnoses Not on filedocumented in this encounter Care Teams Box Stamper Relationship Specialty Start Date End Date Julian Taylor DO PCP - General 01/29/17 Julian Taylor DO [email or web address] Historical LMR Provider 02/03/17 Ritu Hilario PA-C [address] [place] [email or web address] Physician It Applications Manager 01/18/23 documented as of this encounter Additional Source Comments The information contained in this document represents components of the legal health record. It is not the complete legal health record.[facility]
--- OUTSIDE RECORDS SUMMARY | 2025-01-26 12:51 | XMS_ITS | Encounter Summary ---
Author Organization [facility] Address [address] [place] [address] [address] [place] [address] Phone Care Team Providers Care Aircraft Cabin Cleaner Name Role Phone Julian Taylor Primary Care Provider [phone] Lissakhadar Julian Nair DO Unavailable Emelia Amaro CNM Unavailable Ginette Stokes MANAGER TRANSITION Unavailable [phone] Linda Olivas MD Unavailable Marcelle Garza MD Unavailable Odalys Sinha MD Unavailable [phone] Amanda Matute MANAGER TRANSITION Unavailable Ritu Hilario PA-C Unavailable [phone] Encounter Details Date Type Department Care Team (Late st Contact Info) Description 02/16/2019 Ancillary Orders Virtual Department [address] [place] [address] Sari Ellington PA-C [address] [place] [address] Atypical chest pain Social History Tobacco Use Types Packs/Day Years Used Date Smoking Tobacco: Never Assessed Comments No Sex and Gender Information Value Date Recorded Sex Assigned at Not on file Legal Sex Female 9:50 PM EDT Gender Identity Not on file Sexual Orientation Not on file documented as of this encounter Plan of Treatment Not on file documented as of this encounter Results * NC Stress Result for Nuclear Stress Test (02/16/2019 11:49 AM EST) Max BP Systolic 130 mmHg [facility] Max BP Diastolic 60 mmHg [facility] Max HR 131 BPM [facility] Resting HR 84 BPM [facility] Resting BP Systolic 110 mmHg [facility] Resting BP Diastolic 60 mmHg [facility] Peak METS 1.0 METS [facility] Peak HR 118 BPM [facility] Anatomical Region Laterality Modality Heart Other 02/16/2019 11:0 6 AM EST 02/16/2019 11:48 AM EST Narrative 02/16/2019 11:54 AM EST Response to Stress The patient exercised for minutes seconds, achieving 1.0 METS at peak exercise. Baseline blood pressure was 110/60 mmHg, and baseline heart rate was 84 bpm. The patient achieved a peak heart rate of 118 bpm, which is% of their maximum predicted heart rate. Patient was unable to walk on TM due to broken tailbone. The patient was infused with 0.4 mg of Regadenoson (Lexiscan) intravenously over 10 seconds followed immediately by the injection of the Tc99m Sestamibi by the nuclear operator. Patient tolerated infusion without complications. Test terminated due to completion of protocol. SUMMARY: 1. RESTING ECG: Normal sinus rhythm 2. EXERCISE ECG: No ischemic ECG changes after injection of Lexiscan 3. SYMPTOMS: Patient reported mild chest pressure after injection of pharmaceutical agent, this resolved spontaneously in early recovery. She reported no chest pain or pressure at the time of discharge from the stress lab. 4. PHYSIOLOGY: Appropriate physiologic response to Lexiscan injection. Heart rate of 84 bpm sharla to maximum 131 bpm. Vital signs stable and returned to baseline prior to discharge from the lab. 5. ARRHYTHMIA: No ectopy CONCLUSION: Normal EKG portion of pharmacologic nuclear stress test. No ECG changes suggestive of ischemia. Patient tolerated Lexiscan injection without complication. Nuclear images and report to follow. See attached stress report for additional details. Benedicto Saucedo APRN with Dr. Adamson . July Chandana JOHNSON CV NM CARDIAC Final Result documented in this encounter Visit Diagnoses Diagnosis Atypical chest pain Other chest pain Atypical chest pain Other chest pain documented in this encounter Additional Health Concerns Infection Onset Date Last Indicated Resolved Time COVID-19 09/17/2021 09/17/2021 10/08/2021 1:21 AM EDT documented as of this encounter Care Teams Aircraft Cabin Cleaner Relationship Specialty Start Date End Date LissaJulian rubalcavaDO PCP - General 01/29/17 Julian Taylor DO Historical LMR Provider 02/03/17 Emelia Amaro CNM [address] [place] [address] Historical LMR Provider 02/03/17 2 Ginette Stokes NP [address] [place] [address] Historical LMR Provider 02/03/17 04/22/21 Linda Olivas MD [address] [address] Historical LMR Provider 02/03/17 Marcelle Garza MD [address] [place] [address] [facility] Sports Medicine, [place] [address] Historical LMR Provider 02/03/17 Odalys Sinha MD [address] [place] [address] Historical LMR Provider 02/03/17 2 Amanda Matute NP [address] [place] [address] Historical LMR Provider 02/03/17 2 Ritu Hilario PA-C [address] [place] [address] [email or web address] Physician Range Aide 01/18/23 documented as of this encounter Additional Source Comments The information contained in this document represents components of the legal health record. It is not the complete legal health record.[facility]
--- OUTSIDE RECORDS SUMMARY | 2025-01-26 12:51 | XMS_ITS | Clinical Summary ---
Author Organization [facility] Address [address] [place] [address] Care Team Providers Care Hot Air Furnace Installer Repairer Name Role Phone Julian Taylor DO Primary Care Provider [phone] Medical History Medical History Date Comments Cervical spondylosis without myelopathy DX:Cervical spondylosis without myelopathy Family History Medical History Relation Name Comments No Known Problems Brother No Known Problems Daughter No Known Problems Father No Known Problems Mother No Known Problems Sister No Known Problems Son Autoimmune disease Neg Hx Breast cancer Neg Hx Colon cancer Neg Hx Coronary artery disease Neg Hx Diabetes Neg Hx Heart attack Neg Hx Heart failure Neg Hx Hyperlipidemia Neg Hx Hypertension Neg Hx Mental illness Neg Hx Prostate cancer Neg Hx Sleep apnea Neg Hx Thyroid disease Neg Hx Relation Name Status Comments Brother Daughter Father Mother Sister Son Social History Tobacco Use Types Packs/Day Years Used Date Smoking Tobacco: Former Smokeless Tobacco: Never Comments Unknown Sex and Gender Information Value Date Recorded Sex Assigned at Not on file Legal Sex Female 1:11 AM EST Gender Identity Not on file Sexual Orientation Not on file Obstetrics History Plan of Treatment Health Maintenance Due Date Last Done Comments Breast Cancer Screening 1958 DTaP,Tdap,and Td Vaccines (1 - Tdap) 1977 Pneumococcal Vaccine: 50+ Ye ars (1 of 1 - PCV) 2008 Zoster Vaccines (1 of 2) 2008 Depression Screening 04/15/2024 COVID-19 Vaccine ( - 2023-2 5 season) 2024 Influenza Vaccine (#1) 2024 RSV Immunization Adult Patie nts (1 - 1-dose 75+ series) 2033 HIB Vaccines Aged Out No longer eligi ble based on patient's age to complete this topic HPV Vaccines Aged Out No longer eligi ble based on patient's age to complete this topic Hepatitis A Vaccines Aged Out No long er eligible based on patient's age to complete this topic Hepatitis B Vaccines Aged Out No long er eligible based on patient's age to complete this topic IPV Vaccines Aged Out No longer eligi ble based on patient's age to complete this topic MMR Vaccines Aged Out No longer eligi ble based on patient's age to complete this topic Meningococcal ACWY Vaccine Aged Out N o longer eligible based on patient's age to complete this topic Meningococcal B Vaccine Aged Out No l onger eligible based on patient's age to complete this topic RSV Immunization Patients Un lucy 20 months Aged Out No longer eligible b ased on patient's age to complete this topic Varicella Vaccines Aged Out No longer eligible based on patient's age to complete this topic Care Teams Hot Air Furnace Installer Repairer Relationship Specialty Start Date End Date Julian Taylor DO [address] [facility] [place], [place] PCP - General Internal Medicine 08/26/17
--- OUTSIDE RECORDS SUMMARY | 2025-01-26 12:51 | XMS_ITS | Encounter Summary ---
Author Organization [facility] Address [address] [place] [address] Phone Care Team Providers Care Road Passenger Firer Name Role Phone Julian Taylor Primary Care Provider [phone] LissaJulian rubalcava Unavailable Ritu Hilario PA-C Unavailable [phone] Encounter Details Date Type Department Care Team (Late st Contact Info) Description 09/17/2021 Procedure Pass [facility] - [facility] [address] [place] [address] Social History Tobacco Use Types Packs/Day Years [...] on file documented as of this encounter Functional Status * Calculated C-SSRS Risk Score (Lifetime/Recent) Answer Date of Assessment Author No Risk Indicated 09/17/2021 6:00 PM EDT Aga Vogel RN * [place] Suicide Severity Rating Scale (Screener/Recent Self-Report) Question Answer Date of Assessment Author 1. Wish to be (Past 1 Month) No 09/17/2021 6:00 PM EDT Aga Portillo RN 2. Non-Specific Active Suici darya Thoughts (Past 1 Month) No 09/17/2021 6:00 PM EDT Rajesh Portillo RN 6. Suicidal Behavior (Lifetime) No 2 6:00 PM EDT Aga Portillo RN documented as of this encounter Plan of Treatment Not on file documented as of this encounter Visit Diagnoses Not on filedocumented in this encounter Additional Health Concerns Infection Onset Date Last Indicated Resolved Time COVID-19 09/17/2021 09/17/2021 10/08/2021 1:21 AM EDT documented as of this encounter Care Teams Road Passenger Firer Relationship Specialty Start Date End Date Julian Taylor DO PCP - General 01/29/17 Julian Taylor DO Historical LMR Provider 02/03/17 Ritu Hilario PA-C [address] [place] [address] Physician Special Events Manager 01/18/23 documented as of this encounter Additional Source Comments The information contained in this document represents components of the legal health record. It is not the complete legal health record.[facility]
--- OUTSIDE RECORDS SUMMARY | 2025-01-26 12:51 | XMS_ITS | Encounter Summary ---
Author Organization [facility] Address [address] [facility] [address] [place] [address] Phone Care Team Providers Care Assistant Food Service Manager Name Role Phone Julian Taylor DO Primary Care Provider Julian Taylor DO Unavailable Emelia Aamro CNM Unavailable Ginette Stokes ENVIRONMENTAL TECHNICAL OFFICER Unavailable [phone] Linda Olivas MD Unavailable Marcelle Garza MD Unavailable Odalys Sinha MD Unavailable [phone] Amanda Matute ENVIRONMENTAL TECHNICAL OFFICER Unavailable Ritu Hilario PA-C Unavailable Encounter Details Date Type Department Care Team (Late st Contact Info) Description 01/31/2018 Ancillary Orders Virtual Department [address] [place] [address] Julian Taylor DO [address] [facility] [place] [address] [place] [address] Breast screening Social History Tobacco Use Types Packs/Day Years [...] MAMMOGRAM SCREENING WITH TOMOSYNTHESIS WITH CAD (BILATERAL) (03/25/2018 10:17 AM EST) Anatomical Region Laterality Modality Breast Left, Breast Right, Breast Bilateral Bila teral Mammography 03/25/2018 1:04 PM EST Impressions 03/25/2018 1:06 PM EST Stable appearance relative to prior imaging. No findings suggestive of malignancy are seen. BI-RADS CATEGORY: 2 - Benign finding. DENSITY: There are scattered fibroglandular densities. POS - [id number] Narrative 03/25/2018 1:06 PM EST Full-field digital mammography is obtained with computer-aided detection. Comparison with prior imaging from 01/03/2016 is made with older imaging dating back as far as 12/28/2005 also reviewed. There is scattered fibroglandular density evident in the breasts. In addition to 2-D C view imaging, tomosynthesis images are obtained in two projections of each breast. Minor scattered coarsened calcifications are unchanged.. No dominant soft tissue mass of concern, suspicious cluster of calcifications, significant interval skin changes, or architectural distortion is identified. Procedure Note Naveen Rizo MD - 03/25/2018 Full-field digital mammography is obtained with computer-aided detection.Comparison with prior imaging from 01/03/2016 is made with older imagingdating back as far as 12/28/2005 also reviewed. There is scattered fibroglandular density evident in the breasts. Inaddition to 2-D C view imaging, tomosynthesis images are obtained in twoprojections of each breast. Minor scattered coarsened calcifications are unchanged.. No dominant softtissue mass of concern, suspicious cluster of calcifications, significantinterval skin changes, or architectural distortion is identified. IMPRESSION: Stable appearance relative to prior imaging. No findings suggestive ofmalignancy are seen. BI-RADS CATEGORY: 2 - Benign finding. DENSITY: There are scattered fibroglandular densities. POS - [id number] us Julian A Bigda DO IMG MG EXAMS Final Result documented in this encounter Visit Diagnoses Diagnosis Breast screening Breast screening, unspecified Breast screening Breast screening, unspecified documented in this encounter Additional Health Concerns Infection Onset Date Last Indicated Resolved Time COVID-19 09/17/2021 09/17/2021 10/08/2021 1:21 AM EDT documented as of this encounter Care Teams Assistant Food Service Manager Relationship Specialty Start Date End Date LissaJulian rubalcavaDO PCP - General 01/29/17 Julian Taylor DO Historical LMR Provider 02/03/17 Emelia Amaro CNM [address] [place] [address] Historical LMR Provider 02/03/17 2 Ginette Stokes, ENVIRONMENTAL TECHNICAL OFFICER [address] [place] [address] Historical LMR Provider 02/03/17 04/22/21 Linda Olivas MD 15 [facility], [address] [place] [address] Historical LMR Provider 02/03/17 Marcelle Garza MD [address] [place] [address] Orthopedics & Sports Medicine, [place] [address] Historical LMR Provider 02/03/17 Odalys Sinha MD [address] [place] [address] Historical LMR Provider 02/03/17 2 Amanda Matute NP [address] [place] [address] Historical LMR Provider 02/03/17 2 Ritu Hilario PA-C [address] [place] [id number] [email or web address] Physician Paper Mill Superintendent 01/18/23 documented as of this encounter Additional Source Comments The information contained in this document represents components of the legal health record. It is not the complete legal health record.[facility]
--- OUTSIDE RECORDS SUMMARY | 2025-01-26 12:51 | XMS_ITS | Encounter Summary ---
Author Organization [facility] Address [address] [place] [address] Phone Care Team Providers Care Heat Transfer Technician Name Role Phone Julian Taylor DO Primary Care Provider [phone] Julian Taylor DO Unavailable Ritu Hilario PA-C Unavailable [phone] Encounter Details Date Type Department Care Team (Late st Contact Info) Description 09/20/2021 Procedure Pass [facility] Endoscopy Admitting Dept Virtual Department [address] [place] [address] Social History Tobacco Use Types Packs/Day Years [...] documented as of this encounter Care Teams Heat Transfer Technician Relationship Specialty Start Date End Date Julian Taylor DO PCP - General 01/29/17 Julian Taylor DO [email or web address] Historical LMR Provider 02/03/17 Ritu Hilario PA-C [address] [place] [address] [email or web address] Physician Pbx Wire Chief 01/18/23 documented as of this encounter Additional Source Comments The information contained in this document represents components of the legal health record. It is not the complete legal health record.[facility]
--- OUTSIDE RECORDS SUMMARY | 2025-01-26 12:51 | XMS_ITS | Encounter Summary ---
Author Organization [facility] Address [address] [place] [address] Phone Care Team Providers Care Postal Sorting Officer Name Role Phone LissaJulian rubalcava Primary Care Provider [phone] LissaJulian rubalcava Unavailable Ritu Hilario PA-C Unavailable [phone] Reason for Referral * MRI/CAT Scan - Closed Specialty Diagnoses / Procedures Referred By Carolyn washington Referred To Contact Radiology Diagnoses Colitis Procedures CT Angio Abdomen/Pelvis Flakita Dorantes PA Phone: tel: fax: Referral ID Status Reason Start Date Expiration Date Visits Re quested Visits Authorized [id number] Closed 09/27/2021 09/27/2022 1 1 Encounter Details Date Type Department Care Team (Latest Contact Info) Description 09/27/2021 Transcribe Orders Virtual Department [address] [place] [address] Flakita Dorantes PA [address] [place] [address] Colitis (Primary Dx) Social History Tobacco Use Types [...] documented as of this encounter Results * CT ANGIO ABDOMEN/PELVIS WITH AND WITHOUT CONTRAST (10/03/2021 12:18 PM EDT) Anatomical Region Laterality Modality Abdomen, Abdominal Vasculature C omputed Tomography 10/04/2021 1:51 PM EDT Impressions 10/04/2021 2:16 PM EDT *Colonic wall thickening has resolved. *The celiac and mesenteric arteries appear widely patent. Mild atherosclerotic changes. Narrative 10/04/2021 2:[address] ANGIO ABDOMEN/PELVIS WITH CONTRAST CTA ABDOMEN AND PELVIS WITH AND WITHOUT CONTRAST. HISTORY: Abdominal pain, acute ischemic colitis. TECHNIQUE: Helically acquired axial images from the dome of the diaphragm to the femoral area were obtained without oral or IV contrast, followed by helically acquired axial images from the diaphragm to the femoral area during the dynamic IV injection of contrast. 2 min delayed images were obtained from the same area. 3D IMAGES WITH REFORMATTING AND POST-PROCESSING RECONSTRUCTIONS WERE PERFORMED AND INTERPRETED. COMPARISON: CT abdomen/pelvis 09/17/2021. VASCULAR FINDINGS: Mild atherosclerotic changes within the abdominal aorta. The aorta is widely patent. Celiac artery and SMA are widely patent. There is a patent RAFAEL. There is a single right and left main renal artery. Both are widely patent. The abdominal aorta is normal in caliber. Iliac arteries are normal in caliber. No evidence of intra-abdominal or intrapelvic aneurysms. There is no evidence of a flap within the aorta to suggest a dissection. No abdominal aortic devices are evident. There are mildly dilated parauterine on the left. VENOUS: The IVC is poorly opacified but normal in caliber. NON VASCULAR FINDINGS: LOWER THORAX: No significant abnormalities. Tiny calcified granuloma in the lower lobe of the right lung at the base. HEPATOBILIARY: No biliary ductal dilatation. Multiple hepatic cysts demonstrated on 09/17/2021 are stable. Subcentimeter hypodense masses within the liver too small to actively characterize, but very likely cysts are stable. Small calcified granuloma in the inferior aspect of the right hepatic lobe. SPLEEN: No splenomegaly. PANCREAS: No focal masses or ductal dilatation. ADRENALS: No evidence of adrenal masses. KIDNEYS/URETERS: The kidneys enhance normally and are normal in size. No focal abnormalities. No pelvocaliectasis. Ureters normal in caliber. PELVIC ORGANS/BLADDER: No evidence of pelvic masses. PERITONEUM / RETROPERITONEUM: No free fluid, free air or evidence of masses. LYMPH NODES: No suspicious lymph nodes. GI TRACT: No marked bowel distention. No evidence of new or residual bowel wall thickening. BONES AND SOFT TISSUES: No evidence of abdominal wall masses. No suspicious lytic or blastic lesions within the bones. Procedure Note Franko Lacy MD - 10/04/2021 CT ANGIO ABDOMEN/PELVIS WITH CONTRAST CTA ABDOMEN AND PELVIS WITH AND WITHOUT CONTRAST. HISTORY: Abdominal pain, acute ischemic colitis. TECHNIQUE: Helically acquired axial images from the dome of the diaphragmto the femoral area were obtained without oral or IV contrast, followed byhelically acquired axial images from the diaphragm to the femoral areaduring the dynamic IV injection of contrast. 2 min delayed images wereobtained from the same area. 3D IMAGES WITH REFORMATTING AND POST-PROCESSING RECONSTRUCTIONS WEREPERFORMED AND INTERPRETED. COMPARISON: CT abdomen/pelvis 09/17/2021. VASCULAR FINDINGS: Mild atherosclerotic changes within the abdominal aorta. The aorta iswidely patent. Celiac artery and SMA are widely patent. There is a patentIMA. There is a single right and left main renal artery. Both are widelypatent. The abdominal aorta is normal in caliber. Iliac arteries arenormal in caliber. No evidence of intra-abdominal or intrapelvicaneurysms. There is no evidence of a flap within the aorta to suggest adissection. No abdominal aortic devices are evident. There are mildly dilated parauterine on the left. VENOUS: The IVC is poorly opacified but normal in caliber. NON VASCULAR FINDINGS: LOWER THORAX: No significant abnormalities. Tiny calcified granuloma inthe lower lobe of the right lung at the base. HEPATOBILIARY: No biliary ductal dilatation. Multiple hepatic cystsdemonstrated on 09/17/2021 are stable. Subcentimeter hypodense masses withinthe liver too small to actively characterize, but very likely cysts arestable. Small calcified granuloma in the inferior aspect of the righthepatic lobe. SPLEEN: No splenomegaly. PANCREAS: No focal masses or ductal dilatation. ADRENALS: No evidence of adrenal masses. KIDNEYS/URETERS: The kidneys enhance normally and are normal in size. Nofocal abnormalities. No pelvocaliectasis. Ureters normal in caliber. PELVIC ORGANS/BLADDER: No evidence of pelvic masses. PERITONEUM / RETROPERITONEUM: No free fluid, free air or evidence ofmasses. LYMPH NODES: No suspicious lymph nodes. GI TRACT: No marked bowel distention. No evidence of new or residual bowelwall thickening. BONES AND SOFT TISSUES: No evidence of abdominal wall masses. Nosuspicious lytic or blastic lesions within the bones. IMPRESSION: *Colonic wall thickening has resolved. *The celiac and mesenteric arteries appear widely patent. Mildatherosclerotic changes. us Flakita ROQUE IMG CT ABD/PELVIS Final Res ult documented in this encounter Visit Diagnoses Diagnosis Colitis- Primary Other and unspecified noninfectious gastroenteritis and colitis Colitis Other and unspecified noninfectious gastroenteritis and colitis documented in this encounter Additional Health Concerns Infection Onset Date Last Indicated Resolved Time COVID-19 09/17/2021 09/17/2021 10/08/2021 1:21 AM EDT documented as of this encounter Care Teams Postal Sorting Officer Relationship Specialty Start Date End Date Julian Taylor DO PCP - General 01/29/17 Julian Taylor DO Historical LMR Provider 02/03/17 Ritu Hilario PA-C [address] [place] [address] Physician Ex Assistant/Program Director 01/18/23 documented as of this encounter Additional Source Comments The information contained in this document represents components of the legal health record. It is not the complete legal health record.[facility]
--- OUTSIDE RECORDS SUMMARY | 2025-01-26 12:51 | XMS_ITS | Encounter Summary ---
Author Organization [facility] Address [address] [place] [address] [address] [place] [address] Phone Care Team Providers Care Manager Shop Name Role Phone Julian Taylor Primary Care Provider [phone] LissaJulian rubalcava Joanie CHAVEZ Unavailable Emelia Amaro CNM Unavailable [phone] Ginette Stokes INSPECTOR OF DREDGING Unavailable [phone] Linda Olivas MD Unavailable Marcelle Garza MD Unavailable Odalys Sinha MD Unavailable [phone] Amanda Matute INSPECTOR OF DREDGING Unavailable Ritu Hilario PA-C Unavailable [phone] Encounter Details Date Type Department Care Team (Latest Contact Info) Description 02/09/2019 Transcribe Orders Virtual Department [address] [place] [address] Sari Ellington PA-C [address] [place] [address] Syncope and collapse (Primary Dx) Social History Tobacco Use Types [...] documented as of this encounter Results * Holter Monitor 24 Hours (02/18/2019 4:35 PM EST) Total Beats 112,921 [facility] Ventricular Ectopy Total Beats 63 [facility] Ventricular Ectopy Single Beats 4 [facility] Ventricular Pair 0 [facility] Ventricular Runs 0 [facility] Supraventricular Total Beats 5 [facility] Supraventricular Ectopic Single Beats 5 [facility] Supraventricular Runs 0 [facility] Mean Heart Rate 81 BPM [facility] Maximum Heart Rate 119 BPM [facility] Minimum Heart Rate 62 BPM [facility] Longest RR 1.055 S [facility] Anatomical Region Laterality Modality Heart Other 02/16/2019 12:1 9 PM EST 02/18/2019 4:34 PM EST Narrative 02/18/2019 5:28 PM EST 24-hour monitor: Baseline rhythm is sinus with a minimum heart rate of 62, maximum 119, average 81 bpm. There are no long pauses present. There are rare PVCs and PACs present. There were no symptoms reported in the diary. Impression: Normal 24-hour monitor. No symptoms reported. Holter Monitor Main Form Hookup date: 02/16/2019 Scan date: 02/18/2019 Mean HR: 81 bpm Max HR: 119 bpm Min HR: 62 bpm Ventricular ectopic beats - total: 63 Ventricular ectopic beats - singles: 4 Ventricular ectopic beats - pairs: 0 Ventricular ectopic beats - runs: 0 Supraventricular ectopic beats - total: 5 Supraventricular ectopic beats - singles: 5 Supraventricular ectopic beats - runs: 0 Longest R-R interval1.055 sec July Chandana JOHNSON [facility] ORDERABL ES Final Result documented in this encounter Visit Diagnoses Diagnosis Syncope and collapse- Primary Syncope and collapse documented in this encounter Additional Health Concerns Infection Onset Date Last Indicated Resolved Time COVID-19 09/17/2021 09/17/2021 10/08/2021 1:21 AM EDT documented as of this encounter Care Teams Manager Shop Relationship Specialty Start Date End Date Julian Taylor DO PCP - General 01/29/17 Julian Taylor DO Historical LMR Provider 02/03/17 Emelia Amaro CNM [address] [place] [address] Historical LMR Provider 02/03/17 2 Ginette Stokes NP [address] [place] [address] [email or web address] Historical LMR Provider 02/03/17 04/22/21 Linda Olivas MD [address] [place] [address] [email or web address] Historical LMR Provider 02/03/17 Marcelle Garza MD [address] [place] [address] [facility], [place] [address] [email or web address] Historical LMR Provider 02/03/17 Odalys Sinha MD [address] [place] [address] Historical LMR Provider 02/03/17 2 Amanda Matute NP [address] [place] [address] Historical LMR Provider 02/03/17 2 Ritu Hilario PA-C [address] [place] [address] [email or web address] Physician Scouts 01/18/23 documented as of this encounter Additional Source Comments The information contained in this document represents components of the legal health record. It is not the complete legal health record.[facility]
--- OUTSIDE RECORDS SUMMARY | 2025-01-26 12:51 | XMS_ITS | Clinical Summary ---
Author Organization [facility] Address [address] [place] [address] Phone Care Team Providers Care Talent Acquisition Administrator Name Role Phone Ayah Kramer Primary Care Provider [phone] Brandon Ayah Joanie DO Unavailable Ritu Hilario PA-C Unavailable [phone] Allergies Active Allergy Reactions Criticality Noted Date Comments Hydrocodone-Acetaminophen Dizziness 09/17/2021 Medications MELATONIN ORAL As needed Activ e MULTIVITAMIN ORAL Active betamethasone dipropionate 0.05 % cream APPLY TOPICALLY TO THE AFFECTED AREA TWICE DAILY FOR 2 WEEKS NEEDED FOR FLARE 3 Active biotin 1 mg Cap Take by mouth. 3 Active cholecalciferol (VITAMIN D3) 25 MCG (1,000 unit) tablet Take 1,000 Units by mouth. 2 Active calcium carbonate (OS-FABY) 1,250 mg (500 mg elemental) tabletIndication s:post-menopausa l osteoporosis prevention Take 1 tablet by mouth daily. Indications: post-menopausal osteoporosis prevention Active Active Problems Problem Noted Date Diagnosed Date Acute ischemic colitis 09/17/2021 Assessment & Plan (09/19/2021 8:02 PM EDT): - cdiff negative - stool cultures negative so far - colonoscopy planned by GI tomorrow - cont IVF - using IV morphine for pain - holding off on antibiotics Assessment & Plan (09/17/2021 5:33 PM EDT): Presumed history of colitis in the past. Has not had a colonoscopy since these episodes have begun. Previously has been treated with antibiotics. Had temporary improvement this episode with antibiotics. Differential diagnosis includes infectious colitis, inflammatory bowel disease, and ischemic colitis. She is C. difficile negative. --GI Consult --Send stool for Cx, toxigenic E.coli, and WBC. Cdiff negative. --Pain control with as needed morphine --Clear liquid diet --LR @ 100cc.hr --Hold abx for now as discussed with GI. Low threshold to start abx if develops signs of worsening sepsis. Dehydration 09/17/2021 Assessment & Plan (09/17/2021 4:18 PM EDT): IVF as outlined above. COVID-19 09/17/2021 Assessment & Plan (09/18/2021 8:25 PM EDT): - seemingly assymptomatic - no treatment for now, cont to monitor Assessment & Plan (09/17/2021 5:32 PM EDT): Symptoms and a home test from 09/08 per patient's report. PCR positive on admission. Patient asymptomatic. On room air with no respiratory symptoms. -- Monitor. -- Maintain enhanced precautions. Immunizations Immunization Administration Dates Next Due COVID-19 (Pre-02/04) Pfizer Vaccine, mRNA, PF INFLUENZA, SPLIT VIRUS, TRIVALENT W/ PRESERVATIV E IM 03/29/2011 Influenza Quadrivalent MDCK Preservative Free IM 05/05/2017 Influenza Quadrivalent MDCK w/Preservative IM Zoster recombinant 08/29/2020,03/25/2020 Family History Medical History Relation Comments Heart disease Father Breast cancer Maternal Aunt Colon cancer Mother Relation Status Comments Father Maternal Aunt Mother Social History Tobacco Use Types Packs/Day Years [...] on file Sexual Orientation Not on file Last Filed Vital Signs Vital Sign Reading Time Taken Comments Blood Pressure 110/64 08/19/2023 2:03 PM EDT Pulse 64 08/19/2023 2:03 PM EDT Temperature 36.4 C (97.5 F) 08/19/2023 2:03 PM EDT Respiratory Rate 16 09/20/2021 4:02 PM EDT Oxygen Saturation 98% 08/19/2023 2:03 PM EDT Inhaled Oxygen Concentration 20.9% 09/20/2021 2 :48 PM EDT Weight 57.1 kg (125 lb 12.8 oz) 08/19/2023 2:03 PM EDT Height 162.6 cm (5' 4.02 ) 08/19/2023 2:03 PM ED T Body Mass Index 21.58 08/19/2023 2:03 PM EDT Plan of Treatment Health Maintenance Due Date Last Done Comments Adult Td,Tdap Booster 1960 DEPRESSION SCREENING 1970 SMOKING Hx and SMOKELESS TOBACCO SCREENING 11/26/1971 HEPATITIS C SCREENING 1976 COLOGUARD 11/26/2003 FIT TEST 11/26/2003 FOBT 11/26/2003 SIGMOIDOSCOPY 11/26/2003 VIRTUAL COLONOSCOPY 11/26/2003 PNEUMOCOCCAL VACCINES (50+ years) (1 of 1 - PCV) 2008 LIPID PANEL 11/07/2020 11/08/2015 MAMMOGRAM 02/17/2023 02/17/2021, 03/25/2018 OSTEOPOROSIS SCREENING INITI AL (ONE-TIME) 11/26/2023 INFLUENZA VACCINE (#1) 2024 , 05/05/2017, 03/29/2011 COVID-19 VACCINE (2 - 2024-2 6 season) 2024 12/28/2020 COLONOSCOPY 09/21/2031 09/20/2021 COLORECTAL CANCER SCREENING 09/21/2031 RSV VACCINE (1 - 1-dose 75+ series) 2033 ZOSTER VACCINES Completed 08/29/2020, 03/25/2020 HEPATITIS A VACCINES Aged Out No long er eligible based on patient's age to complete this topic HIB VACCINES Aged Out No longer eligi ble based on patient's age to complete this topic MENINGOCOCCAL VACCINES (ACWY) Aged Out No longer eligible based on patient's age to complete this topic MENINGOCOCCAL VACCINES (B) Aged Out N o longer eligible based on patient's age to complete this topic Medical Devices Not on file Procedures Procedure Name Priority Date/Time Associated Diagnosis Comments ENDOSCOPY, COLON 09/20/2021 1:51 PM EDT BI MAMMOGRAM SCREENING WITH TOMOSYNTHESIS WITH CAD (BILATERAL) Routine 02/17/2021 11:02 AM EDT Breast screening from Last 3 Months or Most Recently Relevant to Health Maintenance Results * ENDOSCOPY, COLON (09/20/2021 1:51 PM EDT) Narrative Transcriptions Elizabeth Villatoro MD - 09/20/2021 1:51 PM EDT Patient Name: Elana Nelson Attending MD:: ELIZABETH VILLATORO MD Procedure Date: 09/20/2021 1:51 PM Date of : 1960 Age: 60 Admit Type: Inpatient Gender: Female Room: [facility] Referring MD: AYAH KRAMER DO Exam Type: Colonoscopy Indications: Hematochezia Medications: Monitored Anesthesia Care Procedure: Informed consent was obtained from the patientafter discussion of the indications, limitations, alternatives, benefits, and risks of the procedure. Risks specifically discussed include but are not limited to medication reactions, missed lesions, bleeding, perforation, or the need for emergent surgery. Throughout the procedure, the patient's blood pressure, pulse, end-tidal CO2, and oxygensaturations were monitored continuously. The Olympus adult variable colonoscope [id number] #3 was introduced through the anus and advanced to the terminal ileum, with identification of theappendiceal orifice and IC valve. The colonoscopy was performed without difficulty. The patient tolerated the procedure well. The quality of the bowelpreparation was good. The terminal ileum, ileocecal valve, appendiceal orifice, and rectum werephotographed. Complications: No immediate complications. Estimated blood loss:None. Findings: The terminal ileum appeared normal. Examination of the right colon was repeated in retroflexion and again in NBI. Retroflexion wasalso performed in the rectum. Multiple diverticula were found in the sigmoidcolon. A 3 mm polyp was found in the sigmoid colon. Thepolyp was sessile. The polyp was removed with a coldbiopsy forceps. Resection and retrieval were complete. Segmental moderate inflammation characterized by congestion (edema), erythema and confluentulcerations was found in the sigmoid colon. This was biopsiedwith a cold forceps for histology. Impression: - The examined portion of the ileum was normal. - One 3 mm polyp in the sigmoid colon, removed witha cold biopsy forceps. Resected and retrieved. - Segmental moderate inflammation was found in the sigmoid colon secondary to ischemic colitis.Biopsied. Recommendation: - Patient has a contact number available for emergencies. The signs and symptoms of potential delayed complications were discussed with thepatient. Return to normal activities tomorrow. Written discharge instructions were provided to thepatient. - Await pathology results. - [facility]. assess for risk factors for ischemic colitis. Recommend outpatient GI clinic follow up after discharge. Elizabeth Villatoro ELIZABETH VILLATORO MD 09/20/2021 2:36:59 PM This report has been signed electronically. Number of Addenda: 0 Note Initiated On: 09/20/2021 1:51 PM Procedure Code(s): --- Professional --- 34570, Colonoscopy, flexible; with biopsy, single or multiple --- Technical --- 41002, Colonoscopy, flexible; with biopsy, single or multiple CPT copyright 2020 [employer]. All rights reserved. The codes documented in this report are preliminary and upon core winder reviewmay be revised to meet current compliance requirements. Procedure Date: 09/20/2021 1:51:[address] [place] [address] [place] Ayah A Bigda DO GI PROCEDURE ORDERABLES Final Re sult * BI MAMMOGRAM SCREENING WITH TOMOSYNTHESIS WITH [...] DENSITY: There are scattered fibroglandular densities. us Ayah Joanie Lissada DO IMG MG EXAMS Final Result from Last 3 Months or Most Recently Relevant to Health Maintenance Insurance [facility] Address: [facility] ATTN:[facility] CLAIMS [address] [address] [place] [address] MEDICARE PART A & [place] [address] MEDICARE PART A & B MEDICARE PART A & B MEDICARE PART A & B [facility] Address: [facility] OFFICE OF [facility] CARE ATTN:[facility] CLAIMS [address] [address] [place] [address] MEDICARE PART A & B MEDICARE PART A & B [facility] [place] [address] MEDICARE PART A & B [facility] [place] [address] MEDICARE PART A & B [facility] [place] [place] [address] MEDICARE PART A & B Advance Directives For more information, please contact: [phone] (9AM - 5PM Samia/[facility], Saturday-Saturday) * Full Code (Latest Code Status on File) Date Activated Date Inactivated Comments 09/17/2021 5:19 PM Question Answer Comments Code Status Confirmed With: Patient Care Teams Talent Acquisition Administrator Relationship Specialty Start Date End Date LissaAyah rubalcavaDO [email or web address] PCP - General 01/29/17 Ayah Kramer DO [email or web address] Historical LMR Provider 02/03/17 Ritu Hilario PA-C [address] [place] [address] [email or web address] Physician Tow Truck Operator 01/18/23 Additional Source Comments The information contained in this document represents components of the legal health record. It is not the complete legal health record.[facility]
[2025-01-26 13:21] LABS: MANUAL DIFF FLAG NO
[2025-01-26 13:32] LABS: Hematocrit 37.3 % (37.0-47.0); Hemoglobin 12.3 g/dl (12.0-16.0); Imm Gran Abs Auto 0.01 X10*3/uL (0.00-0.03); Imm Gran Pct Auto 0.2 % (0.0-0.4); Lymphocytes Absolute Auto 1.8 X10*3/uL (1.2-4.9); Mean Corpuscular HGB Conc 33.0 g/dl (31.0-35.0); Mean Corpuscular Hemoglobin 30.6 pg (27.0-33.0); Mean Corpuscular Volume 92.8 fL (80.0-98.0); NRBC Abs Auto 0.000 X10*3/uL (0.0-0.012); NRBC Pct Auto 0.0 /100WBC (0.0-0.2); Platelet Count 247 X10*3/uL (160-400); Red Blood Count 4.02 X10*6/uL (4.20-5.50); White Blood Count 4.2 X10*3/uL (4.8-10.8)
[2025-01-26 13:49] LABS: Hemoglobin A1C 102.4830 umol/L; Total Hemoglobin (HGBA1C) 3147.8513 umol/L
[2025-01-26 14:09] LABS: Alanine Aminotransferase 17 U/L (0-31); Albumin Level 4.3 g/dL (3.5-5.0); Anion Gap 11 (12-20); Aspartate Amino Transferase 23 U/L (5-31); Blood Urea Nitrogen 11 mg/dL (9-16); Calcium 9.0 mg/dL (8.4-10.2); Carbon Dioxide 28 mmol/L (22-29); Chloride 103 mmol/L (96-108); Cholesterol 221 mg/dL (<200); Estimated Glomerular Filt Rate > 60; HDL Cholesterol 71 mg/dL (>40); Potassium 4.3 mmol/L (3.3-5.1); Sodium 138 mmol/L (135-145); Total Protein 6.9 g/dL (6.5-8.0); Triglycerides 50 mg/dL (<150)
[2025-01-26 14:16] LABS: Alkaline Phosphatase 68 U/L (39-117)
== END 2025-01-26 10:47 | disposition home or self-care (01) ==
LOC: HO.MANLDS 10:46
PROVIDERS: Visit Provider Physician Assistant
DX: Z00.00 Encounter for general adult medical examination without abnormal findings (principal); Z13.6 Encounter for screening for cardiovascular disorders; Z13.1 Encounter for screening for diabetes mellitus
CPT/HCPCS: 36415; 80053; 80061; 83036; 85025